=== PATIENT | female | born 1965 | race Asian ===

== ENCOUNTER 2018-09-10 06:07 | Day surgery (SDC) | payer BC ==
[~2018-09-10] VITALS: Ht 160 cm; Wt 40.9 kg
[~2018-09-10 06:07] MED LIST: FOLI1TAB48 PO
[2018-09-10 07:51] VITALS: Ht 160 cm; Wt 40.9 kg
[2018-09-10 08:03] VITALS: BP 112/59; PULSE 65; RESP 18
[2018-09-10] MEDS ORDERED: MIDAZOLAM 1 MG/ML 2 ML INJ ONE ×2 (08:48→08:49)
[2018-09-10] MEDS ORDERED: FENTAnyl 50 MCG/ML VIAL ONE (08:48)
[2018-09-10 09:08] VITALS: BP 90/54; RESP 20
== END 2018-09-10 11:45 | disposition home or self-care (01) ==
LOC: GIL 06:07
PROVIDERS: ATTEND Internal Medicine Gastroenterology
DX: Z12.11 Encounter for screening for malignant neoplasm of colon (principal); K64.8 Other hemorrhoids
CPT/HCPCS: 45378; J2250; J3010

== ENCOUNTER 2019-02-28 06:11 | Day surgery (SDC) | payer BC ==
[~2019-02-28] VITALS: Ht 160 cm; Wt 40.8 kg
[~2019-02-28 06:11] MED LIST changes: -FOLI1TAB48 PO; +NEXIUM
[2019-02-28 06:35] VITALS: Ht 160 cm; Wt 40.8 kg
[2019-02-28 06:57] VITALS: BP 114/66; PULSE 58; RESP 16
[2019-02-28] MEDS ORDERED: FENTAnyl 50 MCG/ML VIAL ONE (08:07)
[2019-02-28] MEDS ORDERED: MIDAZOLAM 1 MG/ML 2 ML INJ ONE (08:07)
[2019-02-28 08:18] VITALS: BP 103/63; PULSE 62; RESP 16
== END 2019-02-28 08:34 | disposition home or self-care (01) ==
LOC: GIL 06:11
PROVIDERS: ATTEND Internal Medicine Gastroenterology
DX: K21.9 Gastro-esophageal reflux disease without esophagitis (principal); K29.50 Unspecified chronic gastritis without bleeding
CPT/HCPCS: 88305; 88312; J2250; J3010